=== PATIENT | male | born 1990 | race Two or more races ===

== ENCOUNTER 2024-09-20 19:21 | Emergency (ER) | payer MEDICAID, SELFPAY ==
[2024-09-20 19:22] VITALS: BMI 24.9
--- NOTE | 2024-09-20 19:30 | PD.EDADULT ---
ED General RME/HPI General Chief complaint: Flu Like Symptoms Stated complaint: FLU LIKE SYMPTOMS, FEVER Time Seen by Provider: 09/20/24 19:29 Arrival date/time: 09/20/24 19:21 RME / HPI RME / HPI narrative: Patient is 34 years old male with no significant past medical history presented to the ED complaining of runny nose, sore throat and cough. He reports symptoms began yesterday when all his family got sick and developed similar symptoms. He also feel weak. His cough is minimally productive with some transparent sputum. He denies any fever, chills, chest pain, shortness of breath. He reports smoking marijuana vape but denies using other illicit drugs, smoking tobacco or drinking alcohol. Related Data Previous Rx's ?Medication ?Instructions ?Recorded ibuprofen 800 mg tablet 800 mg PO TID #30 tabs 03/11/19 oseltamivir 75 mg capsule 75 mg PO BID influenza 5 days #9 09/20/24 caps Allergies Allergy/AdvReac Type Severity Reaction Status Date / Time NKA* Allergy Uncoded 09/05/20 13:16 Review of Systems Review of Systems Systems Reviewed: All systems reviewed, normal except as documented ED Exam Narrative Physical exam: Gen: Well-developed and well-nourished male. HEENT: NCAT, PERRLA, EOMI, MMM, anicteric conjunctivae, laryngeal hyperemia noticed. CVS: normal S1 and S2. RRR. No M/R/G. Resp: CTA B/L. No rhonchi, rales, crackles or wheezing. Abd: soft, non-tender, non-distended. BS+ in all 4 quadrants. MSK: Good ROM in BUE & BLE. No edema or rash. Neuro: CN II-XII grossly intact. Strength 5/5 in BUE & BLE. Alert and oriented x3. Psych: appropriate mood and affect. Course Quality Measures none Orders Category Date Time Status Bedside COVID-19 Antigen Test NOW Care 09/20/24 19:29 Active Bedside Influenza A&B Antigen Test NOW Care 09/20/24 19:30 Completed Vital Signs Vital signs: Vital Signs Temperature 99.4 F 09/20/24 19:34 Pulse Rate 91 09/20/24 19:34 Respiratory Rate 20 09/20/24 19:34 Blood Pressure 114/69 09/20/24 19:34 Pulse Oximetry (%) 96 09/20/24 19:34 Oxygen Delivery Method Room Air 09/20/24 19:34 [facility] Patient data External records reviewed:: [facility] previous records Clinical information provided by:: patient Social determinants that could affect healthcare access:: none Patient has the following chronic illnesses:: none How is presenting disease/condition affected by chronic disease/condition?: no chronic disease Evaluation data The following diagnostics were reviewed and interpreted by me:: other (specify) (bedside COVID and flu panel) Lab and/or radiology exams considered but not ordered:: CXR Interpretation Summary: Positive Influenza B. Medications Medications considered but not ordered:: Tylenol Medication administrations:: oseltamivir 75 mg Consultations Consultation(s) initiated? (list below): No Diagnosis Differential Diagnosis ED Complaint MDM: Influenza A/B, COVID19, strep throat. Most likely diagnosis given after review of the tests above:: Influenza B Admission Indicated Admission indicated?: not indicated Explain why admission is indicated or not indicated:: Clinically and hemodynamically stable. Admission Request Was there a request for admission?: No Disposition Plan Disposition Plan: Discharge Discharge Attestation Discharge Attestation: The patient and all family members were given an opportunity to ask questions and understood the discharge instructions. Discharge instructions specifically effects, indications for sooner follow up or return to the emergency department, and the expected course of current diagnosis. Patient condition: Stable Medical Decision Making Differential Diagnosis Differential Diagnosis: Influenza A/B, COVID19, strep throat. Discharge Plan Plan Patient Disposition: HOME (Self Care) Patient condition on transfer: Stable Prescriptions/Referrals Prescriptions/Med Rec: New oseltamivir 75 mg capsule 75 mg PO BID 5 Days Qty: 9 0RF No Action ibuprofen 800 mg tablet 800 mg PO TID Qty: 30 0RF Problem List Clinical Impression: Influenza Patient/Caregiver Discharge Instructions Education Materials: ED Influenza (Adult) Additional Instructions: Discharge instructions from Dr. Fernandez: --No physical exertion for 3 days to help rest your lungs. --No smoking and no exposure to smoking or pets or dust or cold air. --Tamiflu to kill the influenza germs. Take 1 tab twice daily starting 09/21/24. --Tylenol as needed for fever. --Benadryl as needed for cough or congestion.? ?Increase oral fluid.? We need extra fluid when we are sick.?? --See a private doctor next week if not better. --Seek immediate medical care with significant worsening or with any concerns. Print Language: Frisian Stand Alone Forms: [facility] Award Info., Patient Portal Info Letter
[2024-09-20 19:34] VITALS: BP 114/69; PULSE 91; RESP 20; TEMP 37.4; O2SAT 96
[2024-09-20] MEDS: OSELTAMIVIR 75 MG CAPSULE PO (20:41)
== END 2024-09-20 20:35 | disposition home or self-care (01) ==
LOC: SERX 20:36
PROVIDERS: Emergency Provider Student in an Organized Health Care Education/Training Program
DX: J10.1 Influenza due to other identified influenza virus with other respiratory manifestations (principal)
CPT/HCPCS: 87400; 87811; 99283; A9270